=== PATIENT | female | born 1965 | race African-American/Black ===

== ENCOUNTER 2022-01-24 04:07 | Day surgery (SDC) | payer OTHER ==
[2022-01-23 10:49] VITALS: BMI 24.9
[2022-01-24] MEDS ORDERED: LIDOCAINE HCL/PF 2% SDV 5ML VIAL ONE (07:11)
[2022-01-24] MEDS ORDERED: PROPOFOL 20 ML ONE ×2 (07:11→08:14)
[2022-01-24] MEDS ORDERED: MIDAZOLAM HCL 2 MG/2 ML SINGLE DOSE VIAL ONE (07:11)
[2022-01-24] MEDS ORDERED: DEXAMETHASONE SOD PHOSPHATE 4 MG/1 ML VIAL ONE (07:11)
[2022-01-24] MEDS ORDERED: IBUPROFEN 800 MG/8 ML IJ IVPB PRN (07:29)
[2022-01-24] MEDS ORDERED: IBUPROFEN 600 MG TABLET (FP) PO PRN (07:29)
[2022-01-24] MEDS ORDERED: oxyCODONE HCL 5 MG TABLET PO PRN (07:29)
[2022-01-24] MEDS ORDERED: ONDANSETRON 4 MG/2 ML VIAL IVPUSH PRN (07:29)
[2022-01-24] MEDS ORDERED: ELECTROLYTE-148 SOLN 1,000 ML IV SCH (07:30)
[2022-01-24] MEDS ORDERED: LACTATED RINGERS SOLUTION 1,000 ML IV SCH (08:15)
[2022-01-24 11:47] VITALS: BP 150/86; PULSE 71; TEMP 97.3
== END 2022-01-24 11:05 | disposition home or self-care (01) ==
LOC: JASU-SURG 04:07
PROVIDERS: ATTEND Obstetrics & Gynecology
PROC: 0UDB8ZX Extraction of Endometrium, Via Natural or Artificial Opening Endoscopic, Diagnostic (ICD-10-PCS; principal; 2022-01-24 07:30)
DX: N95.0 Postmenopausal bleeding (principal); N84.0 Polyp of corpus uteri
CPT/HCPCS: 88305-TC; 94760